=== PATIENT | male | born 1995 | race Caucasian/White ===

== ENCOUNTER 2021-07-02 02:19 | Observation (INO) | payer OTHER ==
[2021-07-02] MEDS ORDERED: Morphine 2 MG/ML VIAL SLOW IVP PRN (02:43)
[2021-07-02] MEDS ORDERED: traMADol HCl 50 MG TAB PO PRN (02:43)
[2021-07-02] MEDS ORDERED: Ondansetron ODT 4 MG TAB PO PRN (02:43)
[2021-07-02] MEDS ORDERED: Promethazine HCl 25 MG/ML VIAL IM PRN ×2 (02:43→19:01)
[2021-07-02] MEDS ORDERED: CEFAZOLIN 1 GM VIAL ONE (03:43)
[2021-07-02] MEDS ORDERED: Boostrix 0.5 ML (Tdap) VIAL ONE (03:50)
[2021-07-02 04:47] VITALS: BMI 37.6
[2021-07-02] MEDS: Sodium Chloride 0.9% 1,000 ML IV SCH ×3 (06:00→20:17)
[2021-07-02] MEDS: Acetaminophen 325 MG TAB PO SCH ×5 (06:10→23:49)
[2021-07-02] MEDS: Famotidine 20 MG TAB PO SCH ×2 (08:49→20:16)
[2021-07-02 09:46] LABS: #Eosinphils 0.1 thou/uL (0.0-0.7); #Lymphocytes 2.2 thou/uL (1.20-3.40); #Monocytes 0.4 thou/uL (0.11-0.59); %Basophils 0.5 % (0.0-1.0); %Eosinophils 0.8 % (0.0-10.0); %Lymphocytes 28.7 % (21.0-51.0); %Monocytes 4.6 % (0.0-10.0); %Neutrophils 65.4 % (42.0-75.0); Hemoglobin 15.9 g/dL (14.0-18.0); Mean Corpuscular HGB CONC 34.2 g/dL (32.0-36.0); Mean Corpuscular Hemoglobin 31.6 pg (27.0-31.0); Mean Corpuscular Volume 92.3 fL (78.0-98.0); Mean Platelet Volume 6.7 fL (7.4-10.4); Platelet Count 358 thou/uL (130-400); RBC Distribution Width 11.5 % (11.5-14.5); Red Blood Cell (RBC) Count 5.04 mill/uL (4.70-6.10); White Blood Cell (WBC) Count 7.6 thou/uL (4.8-10.8)
[2021-07-02 09:56] LABS: INR-International Normal Ratio 0.9; Prothrombin Time 12.7 sec (12.0-14.7)
[2021-07-02 09:57] LABS: PTT 26.8 sec (22.9-36.1)
[2021-07-02 10:04] LABS: Anion Gap 15 mmol/L (10-20); BUN (Urea Nitrogen) 10 mg/dL (8.9-20.6); Calc. Creatinine Clearance 251 mL/min (70-130); Calcium 9.2 mg/dL (7.8-10.44); Carbon Dioxide 22 mmol/L (22-29); Chloride 108 mmol/L (98-107); Glucose 92 mg/dL (70-105); Magnesium 1.9 mg/dL (1.6-2.6); Phosphorus 2.7 mg/dL (2.3-4.7); Potassium 3.8 mmol/L (3.5-5.1); Sodium 141 mmol/L (136-145)
[2021-07-02 10:05] LABS: SARS-CoV-2 NAA Rapid Test Not Detected (NotDetected)
[2021-07-02] MEDS ORDERED: CEFAZOLIN 1 GM in Sodium Chloride 0.9% 100 ML IVPB SCH (12:00)
[2021-07-02] MEDS ORDERED: CEFAZOLIN 1 GM VIAL SLOW IVP SCH (14:00)
[2021-07-02] MEDS ORDERED: CEFAZOLIN 2 GM in Sodium Chloride 0.9% 100 ML IVPB SCH (16:30)
[2021-07-02] MEDS ORDERED: Midazolam HCl 2 mg/2 ml Vial ONE (16:50)
[2021-07-02] MEDS ORDERED: HYDROmorphone 0.5 MG/0.5 ML SYRINGE ONE (16:51)
[2021-07-02] MEDS ORDERED: fentaNYL Citrate/PF 100 MCG/2 ML SYRINGE ONE (16:51)
[2021-07-02] MEDS ORDERED: Ketamine 50 MG/ML (10ML VIAL) ONE (16:51)
[2021-07-02] MEDS ORDERED: Bacitracin Zinc Ointment 30 gm TUBE ONE (16:52)
[2021-07-02] MEDS ORDERED: Bupivacaine PF 0.5% 30 ML VIAL ONE (16:52)
[2021-07-02] MEDS ORDERED: Neomycin-Polymyxin 1 ML AMP ONE (16:52)
[2021-07-02] MEDS ORDERED: Famotidine/PF 20 mg/2ml Vial ONE (16:52)
[2021-07-02] MEDS ORDERED: CEFAZOLIN 2 GM VIAL ONE (17:05)
[2021-07-02] MEDS ORDERED: Sodium Chloride 0.9% 100 ML ONE (17:05)
[2021-07-02] MEDS ORDERED: HYDROmorphone 2 MG/ML VIAL SLOW IVP PRN (19:01)
[2021-07-02] MEDS ORDERED: Ketorolac Tromethamine 30 MG/ML VIAL IVP PRN (19:01)
[2021-07-02] MEDS ORDERED: Morphine Sulfate 2 MG/ML SYRINGE SLOW IVP PRN (19:01)
[2021-07-02] MEDS ORDERED: Promethazine HCl 25 MG/ML VIAL IVPB PRN (19:01)
[2021-07-02] MEDS ORDERED: Ondansetron HCl/PF 4 MG/2 ML Vial IVP PRN (19:01)
[2021-07-02] MEDS ORDERED: PACU-Morphine 4MG/ML VIAL SLOW IVP PRN (19:01)
[2021-07-02] MEDS: CEFAZOLIN 2 GM in Sodium Chloride 0.9% 100 ML IVPB SCH (20:16)
[2021-07-02] MEDS: traMADol HCl 50 MG TAB PO PRN (20:17)
[2021-07-03] MEDS: CEFAZOLIN 2 GM in Sodium Chloride 0.9% 100 ML IVPB SCH ×2 (02:48→08:01)
[2021-07-03] MEDS: traMADol HCl 50 MG TAB PO PRN (02:48)
[2021-07-03] MEDS: Sodium Chloride 0.9% 1,000 ML IV SCH ×2 (04:12→11:55)
[2021-07-03] MEDS: Acetaminophen 325 MG TAB PO SCH ×2 (05:46→11:54)
[2021-07-03] MEDS: Famotidine 20 MG TAB PO SCH (08:01)
[2021-07-03 11:34] VITALS: BP 120/76; TEMP 98.2
== END 2021-07-03 13:45 | disposition home or self-care (01) ==
LOC: ERS 02:19 → SJJU 02:43
PROVIDERS: ADMIT Specialist; ATTEND Specialist
PROC: 0KQD0ZZ Repair Left Hand Muscle, Open Approach (ICD-10-PCS; principal; 2021-07-02)
DX: S66.822A Laceration of other specified muscles, fascia and tendons at wrist and hand level, left hand, initial encounter (principal); S61.412A Laceration without foreign body of left hand, initial encounter; G89.11 Acute pain due to trauma; F10.129 Alcohol abuse with intoxication, unspecified; E66.9 Obesity, unspecified; Z68.37 Body mass index [BMI] 37.0-37.9, adult; Z88.0 Allergy status to penicillin; Z20.822 Contact with and (suspected) exposure to COVID-19; W26.0XXA Contact with knife, initial encounter
CPT/HCPCS: 36415; 80048; 83735; 84100; 85025; 85610; 85730; 86850; 86900; 86901; 90715; 96365; G0378; J0690; J1170; J2250; J3490; J7050; S0020; S0028; U0002